=== PATIENT | female | born 1990 | race Caucasian/White ===

== ENCOUNTER 2017-12-12 17:34 | Emergency (ER) | payer SELFPAY ==
[~2017-12-12] VITALS: Ht 165.1 cm; Wt 72.0 kg
[2017-12-12] MEDS ORDERED: VANCOMYCIN 1 G PREMIX 200 ML IV ONE (18:45)
[2017-12-12] MEDS ORDERED: DIPHENHYDRAMINE 50MG/ML VIAL IM ONE (18:45)
[2017-12-12] MEDS ORDERED: LORAZEPAM 2MG/ML CPJ IM ONE (18:45)
[2017-12-12] MEDS ORDERED: SODIUM CHLORIDE 0.9% 1000ML BAG (SEPSIS BOLUS) IV ONE (18:45)
[2017-12-12] MEDS ORDERED: PIPERACILLIN/TAZ 3.375G PREMIX 50 ML IV ONE (18:45)
[2017-12-12] MEDS ORDERED: HALOPERIDOL LACTATE 5MG/ML VIAL IM ONE (18:45)
[2017-12-12 19:41] LABS: BASOPHILS % 0.3 % (0.0-2.0); EOSINOPHILS % 0.5 % (0.0-5.0); HEMATOCRIT. 39.8 % (36.0-48.0); HEMOGLOBIN. 13.5 g/dL (12.0-16.0); LYMPHOCYTES % 30.7 % (20.0-50.0); MEAN CORPUSCULAR HEMOGLOBIN 31.9 pg (28.0-32.0); MEAN CORPUSCULAR VOLUME 93.9 fL (81.0-99.0); NEUTROPHILS % 62.5 % (40.0-76.0); PLATELET 232 x1000/uL (130-400); RED BLOOD CELL COUNT 4.24 mill/uL (4.2-5.4); RED CELL DISTRIBUTION WIDTH 12.4 % (11.6-14.6)
[2017-12-12 19:45] LABS: CHLORIDE 107 mEq/L (98-107)
[2017-12-12 19:46] LABS: HCG SCREEN NEGATIVE
[2017-12-12 19:48] LABS: INR 1.1; PARTIAL THROMBOPLASTIN TIME 26.7 sec (23.4-31.0); PROTHROMBIN TIME 11.8 sec (9.4-11.6)
[2017-12-12 19:50] LABS: ETHANOL BLOOD < 10 mg/dL
[2017-12-12] MEDS ORDERED: KCL 10MEQ/50ML PREMIX 50 ML IV ONE (20:15)
[2017-12-12 21:47] LABS: CLARITY URINE CLEAR (CLEAR); COLOR URINE YELLOW (YELLOW); KETONES URINE NEGATIVE (NEGATIVE); LEUKOCYTE ESTERASE URINE NEGATIVE (NEGATIVE); NITRITE URINE NEGATIVE (NEGATIVE); OCCULT BLOOD URINE NEGATIVE (NEGATIVE); PH URINE 5.5 (4.5-8.0); PROTEIN URINE TRACE (NEGATIVE); SPECIFIC GRAVITY URINE 1.022 (1.005-1.030)
[2017-12-12 22:06] LABS: *BARBITURATES SCREEN URINE NEGATIVE (NEGATIVE); *BENZODIAZEPINES SCREEN URINE NEGATIVE (NEGATIVE); *COCAINE SCREEN URINE NEGATIVE (NEGATIVE); METHADONE URINE SCREEN NEGATIVE (NEGATIVE); OPIATES URINE SCREEN NEGATIVE (NEGATIVE)
[2017-12-12 22:08] LABS: *AMPHETAMINES SCREEN URINE PRESUMTIVE POSITIVE (NEGATIVE); CANNABINOID URINE SCREEN PRESUMTIVE POSITIVE (NEGATIVE); PHENCYCLIDINE URINE SCREEN PRESUMTIVE POSITIVE (NEGATIVE)
[2017-12-13 15:00] VITALS: BP 115/67
== END 2017-12-13 15:10 | disposition home or self-care (01) ==
LOC: EDBD 17:34 → ER 17:34
DX: R45.1 Restlessness and agitation (principal); F19.129 Other psychoactive substance abuse with intoxication, unspecified; E87.6 Hypokalemia; L03.116 Cellulitis of left lower limb; R79.1 Abnormal coagulation profile; Z59.0 Homelessness
CPT/HCPCS: 36415; 70450; 71045; 80053; 80305; 80307; 80329; 81003; 83605; 84703; 85025; 85610; 85730; 86850; 86900; 86901; 87040; 87086; 93005; 96365; 96367; 96372; 99285; G0482; J1200; J1630; J2060; J2543; J3370; J3480; J7030; Z7610